=== PATIENT | male | born 1985 | race Hispanic/Latino ===

== ENCOUNTER 2023-03-05 17:52 | Emergency (ER) | payer OTHER, SELFPAY ==
[2023-03-05 17:54] VITALS: BP 122/91; PULSE 91; RESP 18; TEMP 37.8; O2SAT 98
--- NOTE | 2023-03-05 18:02 | PC.NURSE ---
Pt refused all CT scans that were recommended by the EDP, all risks explained to the pt by the EDP. Pt verbalized understanding of the risk of not getting all the images, pt said I am good i am tired I want to go home
--- NOTE | 2023-03-05 18:17 | ED.GENADULT ---
HPI - General Adult General Chief complaint: Unspecified Stated complaint: rib pain Time Seen by Provider: 03/05/23 17:57 History of Present Illness HPI narrative: 37-year-old male presented the emergency department for evaluation after an injury after falling from a horse and having the horse rolled over him. Patient states he was wearing a helmet and protective gear. Patient states he did have the breath knocked out of him but states he had no loss of consciousness. Patient denies any alcohol consumption. Upon arrival to the ED patient is declining any additional work-up. Patient does have some right upper quadrant tenderness to palpation. Patient was warned that he may have a liver laceration and if he has an underlying diagnosis liver laceration that this could cause him to have severe bleeding that could lead to his . Patient states he does not want any x-rays of his neck chest abdomen or pelvis. Patient states he is aware of the risks and is sure that he has no significant injury. Patient is alert oriented and is clinically appropriate. Related Data Allergies Allergy/AdvReac Type Severity Reaction Status Date / Time No Known Allergies Allergy Unverified 03/05/23 18:06 Review of Systems Review of Systems: All systems reviewed & are unremarkable except as noted in HPI and below Exam Narrative: APPEARANCE: Well appearing, no pain, no distress, well-nourished. HEAD: normocephalic, atraumatic. EYES: PERRLA/EOMI, conjunctivae clear. NOSE: Normal no drainage EARS:TMS clear with good light reflex. THROAT: Pharynx clear, no exudate. NECK: Mild midline neck tenderness to palpation no step-offs or deformity. RESPIRATORY: Airway patent, respirations nonlabored. Clear to auscultation bilaterally, no rales, rhonchi, wheezing. CARDIOVASCULAR: Regular rate and rhythm without murmurs rubs or gallops. ABDOMINAL: Soft nondistended, right upper quadrant tenderness to palpation MUSCULOSKELETAL: Moves all extremities. Strength/ROM intact, No edema, No calf tenderness. NEURO: Alert. Cranial nerves II through XII intact. Grossly intact SKIN: Warm, dry. Normal Color Course Course Emergency Course: 37-year-old male presented the ED for evaluation after an injury after falling off a horse and having a horse roll over him. Patient did have cervical spine tenderness to palpation did have right upper quadrant tenderness to palpation. Patient was warned on the risk of not doing a work-up and the risks of missing a cervical spine injury and risk of missing a liver laceration and patient still prefers no additional imaging. Patient was encouraged to close follow-up with his primary care physician. Patient was also encouraged to return to the ED if any worsening symptoms. Vital Signs Vital signs: Vital Signs Temperature 100.1 F H 03/05/23 17:54 Pulse Rate 91 03/05/23 17:54 Respiratory Rate 18 03/05/23 17:54 Blood Pressure 122/91 H 03/05/23 17:54 Pulse Oximetry 98 03/05/23 17:54 Oxygen Delivery Room Air 03/05/23 17:54 Temperature 100.1 F H 03/05/23 17:54 Pulse Rate 91 03/05/23 17:54 Respiratory Rate 18 03/05/23 17:54 Blood Pressure 122/91 H 03/05/23 17:54 Pulse Oximetry 98 03/05/23 17:54 Oxygen Delivery Room Air 03/05/23 17:54 Medical Decision Making Vital Signs Vital Signs: Vital Signs Temperature 100.1 F H 03/05/23 17:54 Pulse Rate 91 03/05/23 17:54 Respiratory Rate 18 03/05/23 17:54 Blood Pressure 122/91 H 03/05/23 17:54 Pulse Oximetry 98 03/05/23 17:54 Oxygen Delivery Room Air 03/05/23 17:54 Temperature 100.1 F H 03/05/23 17:54 Pulse Rate 91 03/05/23 17:54 Respiratory Rate 18 03/05/23 17:54 Blood Pressure 122/91 H 03/05/23 17:54 Pulse Oximetry 98 03/05/23 17:54 Oxygen Delivery Room Air 03/05/23 17:54 Discharge Plan Discharge Clinical Impression: Neck pain, Abdominal pain Patient Disposition: Home, Self-Care Condition: St
--- NOTE | 2023-03-05 18:43 | PC.NURSE ---
Patient ambulatory without difficulty.
== END 2023-03-05 18:47 | disposition home or self-care (01) ==
PROVIDERS: Emergency Provider Emergency Medicine
DX: S39.91XA Unspecified injury of abdomen, initial encounter (principal); S19.9XXA Unspecified injury of neck, initial encounter; V80.010A Animal-rider injured by fall from or being thrown from horse in noncollision accident, initial encounter
CPT/HCPCS: 99281

== ENCOUNTER 2024-05-11 17:14 | Emergency (ER) | payer OTHER, SELFPAY ==
--- NOTE | ~2024-05-11 | XR_ITS ---
EXAMINATION: [id number] DATE: 05/11/2024 17:51 INDICATION: Workplace evaluation. TECHNIQUE: 2 views of right knee were obtained. COMPARISON: None. FINDINGS: Alignment is normal. No fracture. Joint spaces are normal. No knee joint effusion. IMPRESSION: 1. Normal right knee. Reviewed, dictated and finalized at location E. IMPRESSION: 1. Normal right knee.
--- NOTE | 2024-05-11 17:17 | ED.LOWEXIN ---
HPI - Extremity Injury (Lower) General Chief Complaint: Extremity Injury, Lower Stated Complaint: right leg injury @ work Time Seen by Provider: 05/11/24 17:17 Source: patient Mode of arrival: ambulatory Limitations: no limitations History of Present Illness HPI Narrative: Nicholas is a 38-year-old male patient presenting to the clinic today requesting an x-ray of his right knee. He reports last week he was kicked by horse and he went to the [place] emergency room and they gave him hydrocodone for pain. He reports that they did not x-ray him at of his visit and his work is requiring him to have an x-ray. He denies any pain in his knee currently. Related Data Home Medications Medication Instructions Recorded Confirmed hydrocodone 5 mg-acetaminophen 325 See Rx Instructions .Route .COMPLEX 05/11/24 05/11/24 mg tablet Allergies Allergy/AdvReac Type Severity Reaction Status Date / Time morphine Allergy Intermediate Rash Verified 05/11/24 17:39 Review of Systems Review of Systems: Pertinent positives per HPI. Patient denies any fever, chills, rash, headache, visual changes, dizziness, cough, runny nose, sore throat, shortness of breath, chest pain, palpitations, nausea, vomiting, diarrhea, constipation, abdominal pain, or any urinary issues. PMFSH Comments At the time of my signature, I reviewed and agree with the nursing past medical, surgical, social, and family history. There is no relevant family history pertinent to the patient complaint. Exam Narrative: General: Well-developed, well nourished, in no apparent distress Head: Normocephalic, atraumatic. Cardio: Regular rate and rhythm, s1 and s2 normal, no murmur appreciated. Resp: Clear to auscultation bilaterally, no rhonchi, rales, wheezing or rubs. Musculoskeletal: No deformity, non-tender to palpation, grossly normal range of motion, muscle strength strong and equal, peripheral pulse strong, no edema, no cyanosis, normal gait and station Course Course Emergency Course: Portions of this record may have been created with voice recognition software. Level of Care: Express Care Visit Vital Signs Vital signs: Vital signs reviewed MDM - Extremity Injury (Lower) MDM Narrative Medical decision making narrative: At the time of visit patient is resting comfortably on the exam table. Patient appears to be nontoxic. Diagnostics: X-ray of the he was performed was negative for any sign of fracture or malalignment. Plan: I suspect patient had a knee injury 1 week ago. He denies any pain currently. Will give him a work note to return. Supportive measures were discussed with the patient and they voiced understanding discharge instructions and agrees to treatment plan. Return precautions reviewed Differential Diagnosis Differential diagnosis: Likely acute internal derangement of knee and other (Knee contusion, crush injury, knee sprain, soft tissue injury) Imaging Data Radiologist's impression: ITS Impressions Knee X-Ray 05/11/24 17:54 IMPRESSION: 1. Normal right knee. Discharge Plan Discharge Clinical Impression: Injury of knee Qualifiers: Encounter type: initial encounter Laterality: right Qualified Code(s): S89.91XA - Unspecified injury of right lower leg, initial encounter Patient Disposition: Home, Self-Care Condition: Stable Instructions: Antibiotic Form, Knee Pain (ED) Additional Instructions: X-rays negative for any sign of fracture or malalignment. Rest, ice, elevate as needed Tylenol/motrin for pain as discussed Follow up with your PCP if symptoms persist more than 1 week. Prescriptions: No Action hydrocodone-acetaminophen 5-325 mg tablet See Rx Instructions .ROUTE .COMPLEX Rx Instructions: Rx Follow-up/Referrals: PHYSICIAN,EDGE GLUER [Primary Care Provider] - Stand Alone Forms: Work/School Release IP Time of Disposition: 17:36 Quality [facility] Nursing Documentation ED
[2024-05-11 17:52] VITALS: BP 111/72; PULSE 76; RESP 16; TEMP 37.1; O2SAT 99
== END 2024-05-11 18:02 | disposition home or self-care (01) ==
PROVIDERS: Emergency Provider Nurse Practitioner Family
DX: S89.91XA Unspecified injury of right lower leg, initial encounter (principal); W55.12XA Struck by horse, initial encounter
CPT/HCPCS: 73560; 99213; G0463